=== PATIENT | female | born 1935 | race Caucasian/White ===

== ENCOUNTER 2020-06-16 20:28 | Emergency (ER) | payer MEDICARE, SELFPAY ==
--- NOTE | ~2020-06-16 | CT_ITS ---
EXAMINATION: CT brain wo con EXAM DATE: 06/16/2020 22:09 INDICATION: Fall. Head injury. TECHNIQUE: Spiral CT of the head was performed without contrast. Axial, coronal and sagittal images were reviewed. The dose-length product (DLP) for this examination was 605.33 mGy-cm. The exposure w as tailored according to patient size, and iterative reconstruction (ASIR) was used as additional dos e reduction technique. Comparison is made to prior examination from 03/14/2019. FINDINGS: There is left frontal lobe intraparenchymal hematoma measuring 2.6 cm, in a region of prior old infarction. Probable small overlying subarachnoid hemorrhage. There is left parietal scalp contu shemar and laceration. No evidence of underlying brain mass but follow-up should be obtained. There is mild to moderate microangiopathy and cerebral atrophy unchanged. Bilateral cataract surgery. No obstructive hydrocephalus or extra-axial collections. Right ostiomeatal unit obstructive pattern sinus disease unchanged. IMPRESSION: Left frontal 2.6 cm acute intraparenchymal hematoma. STAT Rad radiologist phoned, discussed this case with clinician as per documentation in their report, which was faxed and scanned into PACS with this exam. Reviewed, dictated and finalized at location A. NTORY ASSISTANT IMPRESSION: Left frontal 2.6 cm acute intraparenchymal hematoma. STAT Rad radiologist phoned, discussed this case with clinician as per document ation in their report, which was faxed and scanned into PACS with this exam.
[2020-06-16 20:41] VITALS: BP 163/96; PULSE 84; RESP 15; TEMP 36.7; O2SAT 100
--- NOTE | 2020-06-16 20:59 | ED.HEATRA ---
HPI - Head Injury General Chief complaint: Head Injury Stated complaint: head lac, tripped over walker Time Seen by Provider: 06/16/20 20:52 History of Present Illness HPI Narrative: 84 yo female presents from home after a fall. She fell backwards down 2 steps and struck the back of her head on the ground. The fall was not witnessed. she does nt believe that she lost consciousness. She does have a moderate headache and bleeding from the posterior scalp. She is on plavix. Related Data Home Medications Medication Instructions Recorded Confirmed atorvastatin 06/16/20 carvedilol 06/16/20 clopidogrel 06/16/20 06/16/20 furosemide 06/16/20 olanzapine mg 06/16/20 Allergies Allergy/AdvReac Type Severity Reaction Status Date / Time codeine Allergy Unknown Verified 03/14/19 18:58 Review of Systems Review of Systems: All systems reviewed & are unremarkable except as noted in HPI and below Constitutional: Constitutional: Denies fever(s) Eyes: Eyes: Denies change in vision Cardiovascular: Cardiovascular: Denies chest pain Respiratory: Respiratory: Denies dyspnea Gastrointestinal: Gastrointestinal: Denies abdominal pain Musculoskeletal: Musculoskeletal: Denies back pain Neurologic: Denies dizziness, Reports headache(s) and Denies weakness Exam Const: General: no acute distress and alert Orientation/consciousness: patient oriented x3 HENMT: Other: Hair matted wiht blood obscuring view of the scalp Eyes: Pupils: Equal, round and reactive pupils present Neck: Neck: normal visual inspection Resp: Effort & Inspection: normal respiratory effort Auscultation: clear to auscultation bilaterally Cardio: Rate: regular rate Rhythm: regular rhythm GI: GI Palp: Yes Soft to palpation and No Tenderness to palpation present (GI) Back/Spine/Pelvis: Other: No cervical spine tenderness Skin: General skin exam: normal color Neuro: General: patient oriented x3 and no focal motor deficits Cranial nerves: Yes CN's II-XII intact bilaterally Other: Mild aphasia/dysarthria Extrem: General: no edema Course Course Emergency Course: Attempted transfer to [facility] at the patient request. They have no beds available. [facility] has accepted the patient. On reassessment her speech has significantly declined. Give the rapid worsening in symptoms I will plan to transfer her by air EMS. Vital Signs Vital signs: Vital Signs Temperature 36.7 C 06/16/20 20:41 Pulse Rate 84 06/16/20 20:41 Respiratory Rate 15 06/16/20 20:41 Blood Pressure 163/96 H 06/16/20 20:41 Pulse Oximetry 100 06/16/20 20:41 Temperature 36.7 C 06/16/20 20:41 Pulse Rate 85 06/16/20 22:53 Respiratory Rate 18 06/16/20 22:53 Blood Pressure 151/74 H 06/16/20 22:53 Pulse Oximetry 100 06/16/20 22:53 MDM - Head Injury Differential Diagnosis Differential diagnosis: Likely concussion without loss of consciousness, closed head injury, subarachnoid hematoma and subdural hematoma Medical Records Attestation: I reviewed the patient's medical records. Lab Data Attestation: I reviewed the patient's lab results. Result diagrams: 06/16/20 22:42 06/16/20 22:42 Labs: Lab Results 06/16/20 06/16/20 06/16/20 Range/Units 22:42 22:42 22:42 WBC 6.6 (4.5-10.0) K/mm3 RBC 3.33 L (4.2-5.4) M/mm3 Hgb 10.5 L (12.0-15.0) g/dL Hct 32.3 L (37.0-47.0) % MCV 97.0 (80-100) fl MCH 31.5 (26-34) pg MCHC 32.5 (32-36) g/dl RDW 14.1 (11.5-14.5) % Plt Count 205 (150-375) k/mm3 MPV 10.5 H (7.4-10.4) fl Immature Gran % (Auto) 0.6 H (0-0.5) % Neut % (Auto) 57.2 (45.5-73.1) % Lymph % (Auto) 28.9 (18.3-44.2) % [place] % (Auto) 9.0 H (2.6-8.5) % Eos % (Auto) 3.7 (0-4.4) % Baso % (Auto) 0.6 (0.2-1.2) % Lymph # (Auto) 1.90 (0.9-3.2) K/mm3 [place] # (Auto) 0.6 (0.1-0.6) K/mm3 Eos # (Auto) 0.2 (0-0.3) K/mm3 Baso # (Auto) 0.0 (0.0-0.1) K/mm
--- NOTE | 2020-06-16 22:00 | PC.NURSE ---
Pt taken to CT scan
--- NOTE | 2020-06-16 22:27 | PC.NURSE ---
Pts speech has significantly become more slurred then when arrived. made aware.
[2020-06-16 22:50] LABS: Basophils Percent Auto 0.6 % (0.2-1.2); Eosinophils Absolute Auto 0.2 K/mm3 (0-0.3); Eosinophils Percent Auto 3.7 % (0-4.4); Hematocrit 32.3 % (37.0-47.0); Hemoglobin 10.5 g/dL (12.0-15.0); Immature Granulocyte Absolute 0.04 K/mm3 (0.00-0.031); Immature Granulocyte Percent A 0.6 % (0-0.5); Lymphocytes Percent Auto 28.9 % (18.3-44.2); Mean Corpuscular HGB Conc 32.5 g/dl (32-36); Mean Corpuscular Hemoglobin 31.5 pg (26-34); Mean Platelet Volume 10.5 fl (7.4-10.4); Monocytes Absolute Auto 0.6 K/mm3 (0.1-0.6); Neutrophils Absolute Auto 3.8 K/mm3 (1.3-6.7); Neutrophils Percent Auto 57.2 % (45.5-73.1); Platelet Count Result 205 k/mm3 (150-375); Red Blood Count 3.33 M/mm3 (4.2-5.4); Red Cell Distribution Width 14.1 % (11.5-14.5); White Blood Count 6.6 K/mm3 (4.5-10.0)
[2020-06-16 22:53] VITALS: BP 151/74; PULSE 85; RESP 18; O2SAT 100
[2020-06-16 23:00] LABS: Partial Thromboplastin Time 24.4 SECONDS (22.3-36.8); Prothrombin Time 13.7 Seconds (11.1-14.7)
[2020-06-16 23:02] LABS: Anion Gap 6 mmol/L (8-16); Blood Urea Nitrogen 34 mg/dL (7-17); Carbon Dioxide 25 mmol/L (22-30); Chloride 107 mmol/L (98-107); Estimated CRCL calculation 22 ml/min; Estimated Glomerular Filt Rate 27; Glucose 214 mg/dL (65-105); Potassium 4.7 mmol/L (3.4-5.0); Sodium 138 mmol/L (137-145)
[2020-06-16] MEDS: SODIUM CHLORIDE 0.9% IV 250 ML 30 ML IV CONT (23:05)
--- NOTE | 2020-06-16 23:05 | PC.NURSE ---
Emergency release of platelets for pt. Pt recieved these as leaving with flight crew.
--- NOTE | 2020-06-26 07:15 | PC.NURSE ---
LATE Entry: This pt received 1000 ml of IV fluids that was completed at 3062
== END 2020-06-16 23:08 | disposition short-term general hospital (02) ==
PROVIDERS: Emergency Provider Emergency Medicine
DX: S06.360A Traumatic hemorrhage of cerebrum, unspecified, without loss of consciousness, initial encounter (principal); Z79.02 Long term (current) use of antithrombotics/antiplatelets; W10.9XXA Fall (on) (from) unspecified stairs and steps, initial encounter
CPT/HCPCS: 36415; 36430; 70450; 80048; 85025; 85610; 85730; 86900; 86901; 99291; J7050; P9034

== ENCOUNTER 2022-04-16 09:10 | Inpatient (IN) | payer MEDICARE, SELFPAY ==
[2022-04-16] VITALS (36 sets, daily range): BP systolic 151–190; BP diastolic 64–99; PULSE 73–94; RESP 9–26; TEMP 35.1–36.9; O2SAT 94–100; BMI 22.7
--- NOTE | ~2022-04-16 | XR_ITS ---
EXAMINATION: XR chest 1V portable DATE: 04/17/2022 05:27 INDICATION: Unresponsive. TECHNIQUE: A single frontal view of the chest was obtained. COMPARISON: Chest single view 04/16/2022 FINDINGS: There is a small right pleural effusion. No pneumonia or pneumothorax. Cardiomegaly is note d. An electronic implant overlies left chest wall. IMPRESSION: 1. Small right pleural effusion with slight worsening. 2. Cardiomegaly. Reviewed, dictated and finalized at location A.
--- NOTE | ~2022-04-16 | CT_ITS ---
EXAMINATION: CT brain wo con DATE: 04/16/2022 10:02 INDICATION: Altered mental status TECHNIQUE: Computed tomography (CT) of the head was performed without intravenous contrast. The dose- length product was 605.33 mGy-cm. Automated exposure control and iterative reconstruction technique w ere employed. COMPARISON: CT dated 06/16/2020 FINDINGS: Generalized atrophy. There are scattered mild periventricular and subcortical white matter changes, most likely related to small vessel ischemic disease (microangiopathy). Chronic left lacunar infarction. Chronic left parietal lobe infarction with encephalomalacia. There is intracranial ather osclerosis. There is pansinusitis, most prominent in the left maxillary sinus. No acute infarction, h emorrhage, mass or mass effect. IMPRESSION: 1. No acute intracranial abnormality. 2: Chronic left lacunar and parietal lobe infarctions. 3: Chronic age-related findings. Reviewed, dictated and finalized at location B.
--- NOTE | ~2022-04-16 | XR_ITS ---
XR chest 1V portable 04/17/2022 08:27 Indication: Hypoxia Procedure: AP portable chest Comparison: 04/17/2022 Findings: Cardiomegaly. There is an intramedullary zonia in the left humerus proximally there is right perihilar and basilar airspace consolidation. Small right pleural effusion. Left lung is clear. No pn eumothorax. There are degenerative changes of the shoulders. No acute osseous abnormality. Impression: 1: Right retrocardiac and basilar airspace disease which may represent pneumonia and/or atelectasis. 2: Small right pleural effusion. Reviewed, dictated and finalized at location B. Impression: 1: Right retrocardiac and basilar airspace disease which may represent pneumoni a and/or atelectasis. 2: Small right pleural effusion.
--- NOTE | ~2022-04-16 | XR_ITS ---
EXAMINATION: XR chest 1V DATE: 04/16/2022 10:04 INDICATION: Altered mental status. TECHNIQUE: A single frontal view of the chest was obtained. COMPARISON: Chest 2 views 03/14/2019 FINDINGS: Skinfolds overlie right hemithorax. There is a small right pleural effusion. There is a dif fuse interstitial pattern in the lungs, consistent mild pulmonary edema. No pneumothorax. Cardiomegal y is noted. An electronic device overlies left chest wall. There is internal fixation of left humerus . IMPRESSION: 1. Mild pulmonary edema. 2. Small right pleural effusion. 3. Cardiomegaly. Reviewed, dictated and finalized at location A.
--- NOTE | 2022-04-16 09:18 | ED.AMS ---
HPI - Altered Mental Status General Chief Complaint: Altered Mental Status Stated Complaint: unresponsive possible uti History of Present Illness HPI narrative: 89-year-old female presenting the emergency department for evaluation of altered mental status. Patient is unresponsive to other than painful stimuli. Family states that the patient did have a brain bleed approximately 2 years ago and this was treated in outside hospital. He states over the last few days she has become increasingly irritable. They state that last night patient had increased difficulty with transitioning from her wheelchair to the bed. They report that when they went to wake of the patient this morning she was unresponsive. Related Data Home Medications Medication Instructions Recorded Confirmed atorvastatin 40 mg tablet 40 mg HS 04/16/22 04/16/22 carvedilol 6.25 mg tablet 6.25 mg PO Q12H 04/16/22 04/16/22 glimepiride 1 mg tablet 1 mg PO DAILY 04/16/22 04/16/22 mirtazapine 15 mg tablet 15 mg PO HS 04/16/22 04/16/22 quetiapine 50 mg tablet 50 mg PO HS 04/16/22 04/16/22 trazodone 50 mg tablet 50 mg PO HS PRN Sleep 04/16/22 04/16/22 Allergies Allergy/AdvReac Type Severity Reaction Status Date / Time codeine AdvReac Unknown Verified 04/16/22 15:09 Review of Systems Review of Systems: ROS unobtainable: Yes unobtainable due to mental status [facility] Family History Family History (Updated 04/16/22 @ 15:45 by Brenda Miramontes RN) Other Unknown family medical history Social History Social History Smoking status: Never smoker Alcohol intake: never Substance use: never Spiritual care concerns: No Exam Narrative: APPEARANCE: Somnolent HEAD: normocephalic, atraumatic. EYES: PERRLA/EOMI, conjunctivae clear. NOSE: Normal no drainage EARS:TMS clear with good light reflex. THROAT: Pharynx clear, no exudate. Strong gag reflex NECK: Supple. No adenopathy, no masses. RESPIRATORY: Airway patent, respirations nonlabored. Clear to auscultation bilaterally, no rales, rhonchi, wheezing. CARDIOVASCULAR: Regular rate and rhythm without murmurs rubs or gallops. ABDOMINAL: Soft, nontender, nondistended, normal bowel sounds MUSCULOSKELETAL: Moves all extremities. Strength/ROM intact, No edema, No calf tenderness. NEURO: Alert. Cranial nerves II through XII intact. Moving all extremities passively. SKIN: Warm, dry. Normal Color Course Course Emergency Course: Patient's head CT was negative for acute intracranial abnormality. Patient was treated for a urinary tract infection. Neurology was consulted due to possibility of an underlying stroke. Patient will be admitted for an MRI. Unable to get CTA due to patient's baseline creatinine status. After discussion with family they decided to make the patient a DNI DNR. Vital Signs Vital signs: Vital Signs Temperature 96.9 F L 04/16/22 09:02 Pulse Rate 90 04/16/22 09:02 Respiratory Rate 26 H 04/16/22 09:02 Blood Pressure 183/91 H 04/16/22 09:02 Pulse Oximetry 94 04/16/22 09:02 Oxygen Delivery Nasal Cannula 04/16/22 09:02 Oxygen Flow Rate 6 04/16/22 09:02 Temperature 98.3 F 04/16/22 16:15 Pulse Rate 87 04/16/22 16:15 Respiratory Rate 17 04/16/22 16:15 Blood Pressure 176/90 H 04/16/22 16:15 Pulse Oximetry 97 04/16/22 16:15 Oxygen Delivery Nasal Cannula 04/16/22 09:02 Oxygen Flow Rate 6 04/16/22 09:02 MDM - Altered Mental Status Lab Data Attestation: I reviewed the patient's lab results. Result diagrams: 04/16/22 09:19 04/16/22 15:27 Labs: Lab Results 04/16/22 04/16/22 04/16/22 Range/Units 09:19 09:19 09:19 WBC 5.4 (4.5-10.0) K/mm3 RBC 4.16 L (4.2-5.4) M/mm3 Hgb 12.8 (12.0-15.0) g/dL Hct 39.0 (37.0-47.0) % MCV 93.8 (80-100) fl MCH 30.8 (26-34) pg MCHC 32.8 (32-36) g/dl RDW 13.3 (11.5-14.5) % Plt Count 164 (150-375) k/mm3 MPV 11.8 H (7.4-10.4) fl [place]
[2022-04-16 09:32] LABS: Basophils Percent Auto 0.7 % (0.2-1.2); Eosinophils Percent Auto 0.7 % (0-4.4); Hemoglobin 12.8 g/dL (12.0-15.0); Immature Granulocyte Absolute 0.02 K/mm3 (0.00-0.031); Immature Granulocyte Percent A 0.4 % (0-0.5); Lymphocytes Absolute Auto 1.03 K/mm3 (0.9-3.2); Lymphocytes Percent Auto 19.3 % (18.3-44.2); Mean Corpuscular HGB Conc 32.8 g/dl (32-36); Mean Corpuscular Hemoglobin 30.8 pg (26-34); Mean Corpuscular Volume 93.8 fl (80-100); Mean Platelet Volume 11.8 fl (7.4-10.4); Monocytes Absolute Auto 0.2 K/mm3 (0.1-0.6); Monocytes Percent Auto 3.6 % (2.6-8.5); Neutrophils Percent Auto 75.3 % (45.5-73.1); Platelet Count Result 164 k/mm3 (150-375); Red Blood Count 4.16 M/mm3 (4.2-5.4); Red Cell Distribution Width 13.3 % (11.5-14.5); White Blood Count 5.4 K/mm3 (4.5-10.0)
[2022-04-16 09:41] LABS: Lactic Acid Reflex 1.5 mmol/L (0.7-2.0)
[2022-04-16 09:42] LABS: Add Urine Microscopic? YES; Appearance Urine Clear (Clear); Bilirubin Urine Negative (Negative); Blood Urine 2+ (Negative); Color Urine Straw (Yellow); Glucose Urine UA 2+ mg/dL (Negative); Ketones Urine Trace mg/dL (Negative); Leukocyte Esterase Ur 1+ LEU/UL (Negative); Nitrate Urine Negative (Negative); Protein Urine 2+ mg/dL (Negative); RBC Urine 21-50 /hpf (0-2); Specific Grav Ur 1.013 (1.001-1.035); Squamous Epithelial Cell Urine Rare /hpf (Few); Urobilinogen Urine Negative mg/dL (<2.0); WBC Clumps Urine Present /HPF; WBC Urine 16-20 /hpf
[2022-04-16 09:47] LABS: Alanine Aminotransferase 21 U/L (6-35); Alkaline Phosphatase 130 U/L (38-126); Anion Gap 16 mmol/L (8-16); Aspartate Amino Transferase 33 U/L (14-36); Bilirubin,Total 0.9 mg/dL (0.2-1.3); Blood Urea Nitrogen 51 mg/dL (7-17); Calcium 6.4 mg/dL (8.4-10.2); Carbon Dioxide 20 mmol/L (22-30); Chloride 109 mmol/L (98-107); Creatine Kinase 121 U/L (30-135); Estimated Glomerular Filt Rate 25; Glucose 218 mg/dL (65-110); Potassium 6.3 mmol/L (3.4-5.0); Sodium 145 mmol/L (137-145)
[2022-04-16 09:48] LABS: Alveolar/Arterial O2 Gradient 63.9 mmHg; Base Excess ABG -4.4 mEq/l (+/-2.0); Fractional Inspired Oxygen 34 %; HCO3 ABG 20.5 mEq/l (22.0-26.0); Oxygen Content ABG 17.9 %vol (16.0-22.0); Oxygen Saturation ABG 98.6 % (95.0-100.0); Oxyhemoglobin 97.2 % THb (90.0-100.0); PCO2 ABG 37.1 mmHg (35.0-45.0); PO2 ABG 135.3 mmHg (80.0-100.0); PO2 FiO2 Ratio Arterial Blood 3.98 %; Total Hemoglobin 12.9 g/dL (12.0-18.0)
[2022-04-16 09:50] LABS: Device NASAL CANNULA; Site Drawn RIGHT BRACHIAL
[2022-04-16 09:51] LABS: Liters per Minute 3.5 LPM
[2022-04-16 10:07] LABS: INR 1.2; Partial Thromboplastin Time 23.8 SECONDS (22.3-36.8); Prothrombin Time 14.4 Seconds (11.1-14.7)
[2022-04-16 10:11] LABS: SARS-CoV-2 RNA PCR Negative
[2022-04-16] MEDS: INSULIN HUMAN REGULAR (*BKC) 100 UNITS/ML IV PUSH (10:29)
[2022-04-16] MEDS: ONDANSETRON INJ 4 MG/2 ML VIAL IV PUSH (10:30)
[2022-04-16] MEDS: CALCIUM GLUCONATE 1,000 MG/10 ML VIAL 1000 MG IV PUSH (10:30)
[2022-04-16] MEDS: SODIUM BICARBONATE 8.4% 50 MEQ/50 ML SYRINGE IV PUSH (10:30)
[2022-04-16] MEDS: SODIUM CHLORIDE 0.9% IV 1,000 ML 999 ML IV CONT (10:31)
[2022-04-16 12:19] LABS: Estimated Glomerular Filt Rate 27
--- NOTE | 2022-04-16 13:21 | PCCCNOTE ---
[employer] Form filled out by [facility], in room with patient and her two daughters. Dr Ruiz also signed.
[2022-04-16 14:05] LABS: Glucose Point of Care 167 mg/dl (65-105)
--- NOTE | 2022-04-16 14:56 | ADMGEN ---
This patient, Lexi Pérez, was admitted to IMU Room 206-1 @ 1420. pt arrived to floor with no family at bedside-family was with pt in ED- unable to complete admission assessment- pt snoring respiration- O2 on 2 l/n @ 16-96% pt does not open eyes to painful stimuli- VSS- Monitor on SR 70's- PMH obtained from medical hx
--- NOTE | 2022-04-16 15:26 | PM.IMHP ---
H&P: HPI History of Present Illness Date/Time: 04/16/22 15:26 Chief Complaint: Altered mental status Narrative: 86-year-old female with a past medical history of type 2 diabetes mellitus, chronic kidney disease, essential hypertension, and prior traumatic brain injury with intercranial bleed 2019 who presented to the ER via EMS from home due to being found unresponsive. Source of information is the patient's daughters who are bedside and ER report. The family reports that the patient usually has mumbling and monitoring speech but they can not understand her. However over the last 4-5 days the patient has been more agitated and having moments of violence. They state that this can often happen when she is feeling ill or has an infection. However today when they went to get her up she was unresponsive. She had emesis noted on her clothes but they did not witness the episode of emesis and were unsure if the patient had possibly aspirated. Patient is sats in the field were 90% on room air and EMS a place the patient on a non-rebreather due to snoring respirations. The family reports that the patient has had multiple episodes of abnormal urines in the past that were necessarily consistent with UTI. They deny the patient having recent fever. 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 The patient reportedly has had a good appetite and drinks plenty of fluids. Although over the last couple of days she may have had some decreased oral intake. She had had a history of dysphagia after her traumatic brain injury in May 2020 and had a G-tube temporarily but this was removed only few months after her initial head injury. Patient does have a history of chronic wounds to bilateral feet. Patient's daughter denies any drainage erythema or evidence of infection of these areas. She is receiving daily dressing changes. Review of another medical record number that the patient has demonstrated the patient had creatinine of 1.8 in May 2020 when she had her intraparenchymal hemorrhage (2.6 cm left frontal parenchymal hemorrhage). Review of Systems Review of Systems: Unobtainable due to the patient's mentation. [facility] Past Medical History Medical History (Updated 04/16/22 @ 18:51 by Larisa Mi DO) Chronic kidney disease, stage 4 (severe) With baseline creatinine of 1.8 in 2019. Combined systolic and diastolic congestive heart failure Echocardiogram 2013 EF 45% grade 1 diastolic dysfunction Coronary artery disease CVA (cerebral vascular accident) (04/2014) Essential hypertension Type 2 diabetes mellitus Surgical History Surgical History (Updated 04/16/22 @ 18:33 by Larisa Mi DO) History of heart artery stent X5 greater than 20 years ago Implantable loop recorder present Status post cataract extraction of both eyes with insertion of intraocular lens Status post open reduction with internal fixation of fracture Left humerus fracture Family History Family History (Updated 04/16/22 @ 18:35 by Larisa Mi DO) Father , Age 60 COPD (chronic obstructive pulmonary disease) Alcoholism Mother , Age 70 Diabetes mellitus Social History Social History (Updated 04/16/22 @ 18:38 by Larisa Mi DO) Social History: She has been and also . She has 2 daughters and currently lives with her daughter Leilani. She previously lived in assisted living until December 21, 2021. She is a lifelong nonsmoker. She only occasionally drink alcohol and has not done so in many years. Code status: DNR/DNI Healthcare power of transformer inspector: Leilani Castle (daughter) Smoking status: Never smoker Alcohol intake: former Substance use: never Spiritual care concerns: No Meds Home Medications and Allergies Home Medications Medication Instructions Recorded Confirmed Type atorvastatin 40 mg tablet 40 mg DA
[2022-04-16] MEDS: SODIUM CHLORIDE 0.9% IV 1,000 ML 75 ML IV CONT (16:05)
[2022-04-16 16:10] LABS: Anion Gap 12 mmol/L (8-16); Blood Urea Nitrogen 49 mg/dL (7-17); Carbon Dioxide 21 mmol/L (22-30); Chloride 110 mmol/L (98-107); Estimated CRCL calculation 19 ml/min; Estimated Glomerular Filt Rate 25; Glucose 181 mg/dL (65-110); Potassium 4.5 mmol/L (3.4-5.0); Sodium 143 mmol/L (137-145)
[2022-04-16 18:42] LABS: Glucose Point of Care 183 mg/dl (65-105)
[2022-04-16] MEDS: ASPIRIN 300 MG SUPPOSITORY RECTAL (21:24)
[2022-04-17] VITALS (27 sets, daily range): BP systolic 100–152; BP diastolic 44–76; PULSE 59–106; RESP 20–27; TEMP 35–37; O2SAT 83–100; BMI 23.6
--- NOTE | 2022-04-17 | ECHO_ITS ---
Patient Info Name: Lexi Pérez Age: 86 years : 1935 Gender: Female Ht: 62 in Wt: 168 lbs BSA: 1.85 m2 HR: 84 bpm BP: 118 / 57 mmHg Heart Rhythm: Sinus Rhythm Technical Quality: Fair Exam Date: 04/17/2022 11:04 AM Exam Location: [facility] Patient Status: Inpatient Admit Date: 04/16/2022 Staff Ordering Physician: Yolis Cline DO Field Crew Chief: Lynda Cramer RDCS Attending Provider: Camila William MD Referring Physician: Marlyn KENDALL; Exam Type: CA echo doppler color flow Study Info Indications - ams Complete two-dimensional, color flow and Doppler transthoracic echocardiogram is performed. Summary 1. Complete two-dimensional, color flow and Doppler transthoracic echocardiogram is performed. 2. Left ventricular chamber dimension is normal. 3. Left ventricular systolic function is moderately reduced, estimated at 30-35% with akinesis of the basal inferolateral mid to basal anterolateral simmons. 4. There is mildly increased left ventricular wall thickness. Suggestion of speckled myocardium. Consider infiltrative process if clinically indicated. 5. The left ventricular diastolic function is grade I diastolic dysfunction. 6. There is mild aortic valve stenosis with a peak velocity of 126 cm/s, mean gradient of 3 mmHg, and aortic valve area of 1.5 cm2. 7. There is mild tricuspid valve regurgitation. 8. Severe pulmonary hypertension, estimated pulmonary arterial systolic pressure is 79 mmHg. 9. Dilated inferior vena cava with <50% collapse upon inspiration consistent with elevated right atrial pressure, 10 mmHg. Left Ventricle Left ventricular chamber dimension is normal. Left ventricular systolic function is moderately reduced, estimated at 30-35% with akinesis of the basal inferolateral mid to basal anterolateral simmons. There is mildly increased left ventricular wall thickness. Suggestion of speckled myocardium. Consider infiltrative process if clinically indicated. The left ventricular diastolic function is grade I diastolic dysfunction. E/e' 20.4 is moderately elevated. Right Ventricle Right ventricular chamber dimension is not well visualized. Left Atria Left atrial chamber dimension is normal. Right Atria Right atrial chamber dimension is normal. Aortic Valve The aortic valve is not well visualized. There is mild aortic valve stenosis with a peak velocity of 126 cm/s, mean gradient of 3 mmHg, and aortic valve area of 1.5 cm2. There is no aortic valve regurgitation. There is mild aortic valve calcification. Pulmonic Valve The pulmonic valve is not well visualized. Mitral Valve The mitral valve has thickened leaflets. There is trace mitral valve regurgitation. The mitral valve annulus is moderately calcified. Tricuspid Valve The tricuspid valve leaflets are normal. There is mild tricuspid valve regurgitation. Severe pulmonary hypertension, estimated pulmonary arterial systolic pressure is 79 mmHg. Pericardium/Pleural The pericardium appears normal. There is no pericardial effusion. Inferior Vena Cava Dilated inferior vena cava with <50% collapse upon inspiration consistent with elevated right atrial pressure, 10 mmHg. Aorta The aortic root size at the sinus of Valsalva is normal. There is mild-moderate aortic atherosclerosis. Left Ventricular Outflow Tract Name Value Normal
[2022-04-17 00:02] LABS: Glucose Point of Care 185 mg/dl (65-105)
[2022-04-17 05:13] LABS: Hemoglobin 11.2 g/dL (12.0-15.0); Mean Corpuscular Hemoglobin 30.4 pg (26-34); Mean Corpuscular Volume 95.1 fl (80-100); Mean Platelet Volume 11.5 fl (7.4-10.4); Platelet Count Result 152 k/mm3 (150-375); Red Blood Count 3.68 M/mm3 (4.2-5.4); Red Cell Distribution Width 13.5 % (11.5-14.5); White Blood Count 11.2 K/mm3 (4.5-10.0)
[2022-04-17] MEDS: FUROSEMIDE INJ 40 MG/4 ML VIAL IV PUSH ×2 (05:23→09:58)
[2022-04-17 05:30] LABS: Anion Gap 10 mmol/L (8-16); Blood Urea Nitrogen 54 mg/dL (7-17); Calcium 8.3 mg/dL (8.4-10.2); Carbon Dioxide 21 mmol/L (22-30); Chloride 113 mmol/L (98-107); Estimated CRCL calculation 18 ml/min; Estimated Glomerular Filt Rate 24; Glucose 172 mg/dL (65-110); Potassium 4.7 mmol/L (3.4-5.0); Sodium 144 mmol/L (137-145)
--- NOTE | 2022-04-17 06:45 | PC.NURSE ---
i have reviewed the charting Jazmine Maya
--- NOTE | 2022-04-17 08:24 | PM.IMPN ---
Progress Note: A&P Assessment and Plan (1) Altered mental status: Code(s): R41.82 - Altered mental status, unspecified Status: Acute Assessment and Plan: Differential includes encephalopathy due to possible UTI, encephalopathy due to worsening renal function with elevated BUN or acute CVA. They initial plan was for the patient to be admitted for IV fluids correction of her hyperkalemia and MRI without contrast. Unfortunately the patient has an implanted loop recorder that was implanted at least 10 years ago. The family does not know the details regarding the loop recorder. The patient had had a MRI at [facility] in October of this year. Neurology has been consulted for further evaluation and recommendations. Patient is hypertensive but will allow for some permissive hypertension given possibility of possible acute CVA. Will provide rectal aspirin. 04/17: patient developed hypoxia + leukocytosis overnight, looking at H&P, patient may have aspirated, will start patient on vanc + imipenem, stop rocephin. Chest x-ray showed worsening edema with vascular congestion, no pneumonia, will give patient a dose of Lasix 40 mg IV now, ABG shows acidosis with hypercapnia, will place patient on BiPAP and reassess in a few hours. (2) Bacteriuria with pyuria: Code(s): R82.71 - Bacteriuria; R82.81 - Pyuria Status: Acute Assessment and Plan: Patient has bacteria pyuria. She does not have a fever or evidence of leukocytosis. She did receive 1 dose of Rocephin in the ER. Will continue Rocephin while awaiting urine cultures. 04/17: rocpehin d/c d/t possible asp pna, start imipenem (3) Acute hyperkalemia: Code(s): E87.5 - Hyperkalemia Status: Acute Assessment and Plan: Patient received calcium, bicarb and insulin in the ER. Her repeat potassium level as improved. Patient is not on oral supplements at home. This is likely due to decreased excretion from her chronic kidney disease with likely complicating dehydration given increased BUN from baseline. Will continue normal saline and repeat BMP in a.m. 04/17: potassium resolved, stable at 4.7, cont to monitor, goal >4 to prevent arrhythmias, calcium 8.3 today (4) Chronic kidney disease, stage 4 (severe): Code(s): N18.4 - Chronic kidney disease, stage 4 (severe) Status: Acute Assessment and Plan: stable, baseline creatinine likely 1.8-2 (5) Diabetes mellitus with hyperglycemia, without long-term current use of insulin: Qualifiers: Diabetes mellitus type: type 2 Qualified Code(s): E11.65 - Type 2 diabetes mellitus with hyperglycemia Code(s): E11.65 - Type 2 diabetes mellitus with hyperglycemia Status: Acute Assessment and Plan: Will hold the patient's oral hypoglycemic agents. Will place patient on Accu-Cheks q.6 hours while NPO and had low-dose sliding scale insulin q.6 hours. Hypoglycemia protocol is also ordered. 04/17: a1c ordered and pending, goal glucose < 180 d/t possible CVA, will start lantus 5 units this morning x 1 dose and reassess tomorrow (6) Essential hypertension: Code(s): I10 - Essential (primary) hypertension Status: Acute Assessment and Plan: Will continue home Coreg but will allow for some permissive hypertension in case patient has had a acute CVA. Plan DVT prophylaxis with SCDs GI prophylaxis not indicated Code status DNR Subjective Date/time seen: 04/17/22 08:24 Interval history: overnight patient became extremely hypoxic and ended up on BiPAP. ABG showed acidosis likely secondary to hypercapnia. Patient remains unresponsive. Case discussed with family extensively at bedside. All questions answered. Review of Systems Review of Systems: ROS unobtainable: Yes unobtainable due to medical condition and unobtainable due to mental status Exam Narrative: General: Unresponsive HEENT: Atraumatic, normocephalic,
--- NOTE | 2022-04-17 08:43 | WPDNEURCNPN ---
Assessment and Plan Assessment and plan (1) Altered mental status: Code(s): R41.82 - Altered mental status, unspecified Status: Acute (2) Acute UTI: Code(s): N39.0 - Urinary tract infection, site not specified Status: Acute (3) Chronic kidney disease, stage 4 (severe): Code(s): N18.4 - Chronic kidney disease, stage 4 (severe) Status: Acute (4) Diabetes mellitus with hyperglycemia, without long-term current use of insulin: Qualifiers: Diabetes mellitus type: type 2 Qualified Code(s): E11.65 - Type 2 diabetes mellitus with hyperglycemia Code(s): E11.65 - Type 2 diabetes mellitus with hyperglycemia Status: Acute Plan Ms. Pérez is an 86 year old female with a history of prior hemorrhagic stroke, DM, CKD, HTN who presented after being found unresponsive. UA concerning for UTI. Also considering aspiration given history of emesis and recent respiratory deterioration. Etiology is likely underlying infection vs uremia vs vascular event. Suspicion for seizure is low, although patient is at risk considering history of prior stroke. - If no improvement in mental status with treatment of underlying infection, recommend MRI brain - Obtain routine EEG Consult date: 04/17/22 Time Seen: 08:43 Reason for consult: Altered mental status HPI: Lexi Pérez is a 86 year old female with a history of diabetes, CKD, HTN, ICH in 2019 presenting after being found unresponsive. Patient was brought in yesterday after daughters found her unresponsive at home. They reports that over the past week she has been more agitated, which happens at times due to underlying illness or infection. When daughters found her yesterday she had emesis on her clothes. On arrival to [place] ED she was lethargic. Her UA was concerning for UTI. Labs were significant for potassium of 6.3, BUN [address] head showed chronic infarct in left lacunar and parietal lobe. Patient was started on Rocephin and was admitted for treatment. This morning had decline in respiratory status, so was placed on BiPAP. Review of Systems Review of Systems: ROS unobtainable: Yes unobtainable due to mental status PMFSH Past Medical History Medical History Chronic kidney disease, stage 4 (severe) With baseline creatinine of 1.8 in 2019. Combined systolic and diastolic congestive heart failure Echocardiogram 2013 EF 45% grade 1 diastolic dysfunction Coronary artery disease CVA (cerebral vascular accident) (04/2014) Essential hypertension Type 2 diabetes mellitus Surgical History Surgical History History of heart artery stent X5 greater than 20 years ago Implantable loop recorder present Status post cataract extraction of both eyes with insertion of intraocular lens Status post open reduction with internal fixation of fracture Left humerus fracture Family History Family History Father , Age 60 COPD (chronic obstructive pulmonary disease) Alcoholism Mother , Age 70 Diabetes mellitus Social History Social History Social History: She has been and also . She has 2 daughters and currently lives with her daughter Leilani. She previously lived in assisted living until December 21, 2021. She is a lifelong nonsmoker. She only occasionally drink alcohol and has not done so in many years. Code status: DNR/DNI Healthcare power of commercial attorney: Leilani Castle (daughter) Smoking status: Never smoker Alcohol intake: former Substance use: never Spiritual care concerns: No Meds Home Medications and Allergies Home Medications Medication Instructions Recorded Confirmed Type atorvastatin 40 mg tablet 40 mg HS 04/16/22 04/16/22 History carvedilol 6.25 mg tablet 6.25 mg
[2022-04-17 09:14] LABS: Alveolar/Arterial O2 Gradient 514.5 mmHg; Base Excess ABG -3.3 mEq/l (+/-2.0); Fractional Inspired Oxygen 100 %; HCO3 ABG 23.5 mEq/l (22.0-26.0); Oxygen Saturation ABG 98.7 % (95.0-100.0); Oxyhemoglobin 97.4 % THb (90.0-100.0); PCO2 ABG 49.6 mmHg (35.0-45.0); PO2 ABG 148.9 mmHg (80.0-100.0); PO2 FiO2 Ratio Arterial Blood 1.49 %; Total Hemoglobin 12.2 g/dL (12.0-18.0)
[2022-04-17 09:15] LABS: Device NON-REBREATHER MASK; Site Drawn RIGHT BRACHIAL; pH ABG 7.294 (7.350-7.450)
[2022-04-17 09:32] LABS: Alanine Aminotransferase 19 U/L (6-35); Albumin Level 3.1 g/dL (3.5-5.1); Alkaline Phosphatase 95 U/L (38-126); Aspartate Amino Transferase 32 U/L (14-36); Bilirubin,Total 0.4 mg/dL (0.2-1.3)
[2022-04-17] MEDS: INSULIN GLARGINE (*BKC) 100 UNITS/ML SUB-Q (10:00)
[2022-04-17 10:03] LABS: Lactic Acid Reflex 1.1 mmol/L (0.7-2.0)
[2022-04-17] MEDS: SILVERGEL (ELTA) 45 ML 1 APPLIC TOPICAL (10:41)
[2022-04-17 11:59] LABS: Alveolar/Arterial O2 Gradient 248.5 mmHg; Base Excess ABG -2.7 mEq/l (+/-2.0); Fractional Inspired Oxygen 80 %; HCO3 ABG 24.3 mEq/l (22.0-26.0); Oxygen Content ABG 17.2 %vol (16.0-22.0); Oxygen Saturation ABG 99.5 % (95.0-100.0); PCO2 ABG 51.4 mmHg (35.0-45.0); PO2 ABG 267.9 mmHg (80.0-100.0); PO2 FiO2 Ratio Arterial Blood 3.35 %
[2022-04-17 12:01] LABS: Device BIPAP; Site Drawn RIGHT BRACHIAL; pH ABG 7.292 (7.350-7.450)
[2022-04-17 12:02] LABS: Expiratory Pressure 8 cmH2O; Inspiratory Pressure 12 cmH2O
[2022-04-17 13:11] LABS: Glucose Point of Care 188 mg/dl (65-105)
[2022-04-17 18:31] LABS: Glucose Point of Care 184 mg/dl (65-105)
[2022-04-18] VITALS (27 sets, daily range): BP systolic 95–119; BP diastolic 41–54; PULSE 60–89; RESP 20–31; TEMP 36.2–37.4; O2SAT 92–100
[2022-04-18 00:08] LABS: Glucose Point of Care 149 mg/dl (65-105)
[2022-04-18 04:48] LABS: Basophils Percent Auto 0.5 % (0.2-1.2); Eosinophils Absolute Auto 0.1 K/mm3 (0-0.3); Eosinophils Percent Auto 1.6 % (0-4.4); Hematocrit 36.5 % (37.0-47.0); Hemoglobin 11.3 g/dL (12.0-15.0); Immature Granulocyte Absolute 0.03 K/mm3 (0.00-0.031); Immature Granulocyte Percent A 0.4 % (0-0.5); Lymphocytes Absolute Auto 1.74 K/mm3 (0.9-3.2); Lymphocytes Percent Auto 20.4 % (18.3-44.2); Mean Corpuscular Hemoglobin 30.3 pg (26-34); Mean Corpuscular Volume 97.9 fl (80-100); Mean Platelet Volume 11.8 fl (7.4-10.4); Monocytes Absolute Auto 0.8 K/mm3 (0.1-0.6); Monocytes Percent Auto 8.8 % (2.6-8.5); Neutrophils Absolute Auto 5.8 K/mm3 (1.3-6.7); Neutrophils Percent Auto 68.3 % (45.5-73.1); Platelet Count Result 146 k/mm3 (150-375); Red Blood Count 3.73 M/mm3 (4.2-5.4); Red Cell Distribution Width 13.9 % (11.5-14.5); White Blood Count 8.5 K/mm3 (4.5-10.0)
[2022-04-18 05:10] LABS: Alanine Aminotransferase 19 U/L (6-35); Albumin Level 3.1 g/dL (3.5-5.1); Alkaline Phosphatase 87 U/L (38-126); Anion Gap 10 mmol/L (8-16); Aspartate Amino Transferase 36 U/L (14-36); Bilirubin,Total 0.4 mg/dL (0.2-1.3); Blood Urea Nitrogen 66 mg/dL (7-17); Carbon Dioxide 23 mmol/L (22-30); Chloride 114 mmol/L (98-107); Estimated CRCL calculation 12 ml/min; Estimated Glomerular Filt Rate 14; Glucose 143 mg/dL (65-110); Potassium 4.5 mmol/L (3.4-5.0); Sodium 147 mmol/L (137-145)
[2022-04-18] MEDS: SILVERGEL (ELTA) 45 ML 1 APPLIC TOPICAL (11:07)
[2022-04-18 12:08] LABS: Glucose Point of Care 146 mg/dl (65-105)
--- NOTE | 2022-04-18 12:12 | P.PNIM_ITS ---
Progress Note: A&P Assessment and Plan (1) Altered mental status: Code(s): R41.82 - Altered mental status, unspecified Status: Acute Assessment and Plan: Differential includes encephalopathy due to possible UTI, encephalopathy due to worsening renal function with elevated BUN or acute CVA. They initial plan was for the patient to be admitted for IV fluids correction of her hyperkalemia and MRI without contrast. Unfortunately the patient has an implanted loop recorder that was implanted at least 10 years ago. The family does not know the details regarding the loop recorder. The patient had had a MRI at [facility] in October of this year. Neurology has been consulted for further evaluation and recommendations. Patient is hypertensive but will allow for some permissive hypertension given possibility of possible acute CVA. Will provide rectal aspirin. 04/17: patient developed hypoxia + leukocytosis overnight, looking at H&P, patient may have aspirated, will start patient on vanc + imipenem, stop rocephin. Chest x-ray showed worsening edema with vascular congestion, no pneumonia, will give patient a dose of Lasix 40 mg IV now, ABG shows acidosis with hypercapnia, will place patient on BiPAP and reassess in a few hours. 04/18: patient remains on BiPAP, unable to be weaned, will consult care coordination for hospice consultation, suspect CVA as etiology (2) Bacteriuria with pyuria: Code(s): R82.71 - Bacteriuria; R82.81 - Pyuria Status: Acute Assessment and Plan: Patient has bacteria pyuria. She does not have a fever or evidence of leukocytosis. She did receive 1 dose of Rocephin in the ER. Will continue Rocephin while awaiting urine cultures. 04/17: rocephin d/c d/t possible asp pna, start imipenem 04/18: Day 2 of imipenem, blood cultures pending, white count decreasing down to 8.5 from 11 yesterday (3) Acute hyperkalemia: Code(s): E87.5 - Hyperkalemia Status: Acute Assessment and Plan: Patient received calcium, bicarb and insulin in the ER. Her repeat potassium level improved. Patient is not on oral supplements at home. This is likely due to decreased excretion from her chronic kidney disease with likely complicating dehydration given increased BUN from baseline. Will continue normal saline and repeat BMP in a.m. 04/17: potassium resolved, stable at 4.7, cont to monitor, goal >4 to prevent arrhythmias, calcium 8.3 today 04/18: Potassium 4.5 today, continue to monitor (4) Chronic kidney disease, stage 4 (severe): Code(s): N18.4 - Chronic kidney disease, stage 4 (severe) Status: Acute Assessment and Plan: stable, baseline creatinine likely 1.8-2 04/18: Creatinine worsening to 3.1 today, up from 2 yesterday, BUN increased from 54 to 66 (5) Diabetes mellitus with hyperglycemia, without long-term current use of insulin: Qualifiers: Diabetes mellitus type: type 2 Qualified Code(s): E11.65 - Type 2 diabetes mellitus with hyperglycemia Code(s): E11.65 - Type 2 diabetes mellitus with hyperglycemia Status: Acute Assessment and Plan: Will hold the patient's oral hypoglycemic agents. Will place patient on Accu- Cheks q.6 hours while NPO and had low-dose sliding scale insulin q.6 hours. Hypoglycemia protocol is also ordered. 04/17: a1c ordered and pending, goal glucose < 180 d/t possible CVA, will start lantus 5 units this morning x 1 dose and reassess tomorrow 04/18: Continue Lantus 5 units, glucose consistently under 180 now (6) Essential hypertension: Code(s): I1
--- NOTE | 2022-04-18 14:30 | PCNEURO ---
EEG on hold per Dr Cuevas due to patient condition.
[2022-04-19] VITALS (12 sets, daily range): BP systolic 113–132; BP diastolic 55–62; PULSE 59–105; RESP 22–35; TEMP 36.5–36.8; O2SAT 95–100
[2022-04-19 01:01] LABS: Glucose Point of Care 173 mg/dl (65-105)
[2022-04-19 05:04] LABS: Basophils Absolute Auto 0.1 K/mm3 (0.0-0.1); Basophils Percent Auto 0.5 % (0.2-1.2); Eosinophils Absolute Auto 0.2 K/mm3 (0-0.3); Eosinophils Percent Auto 1.6 % (0-4.4); Hematocrit 41.2 % (37.0-47.0); Hemoglobin 12.7 g/dL (12.0-15.0); Immature Granulocyte Absolute 0.04 K/mm3 (0.00-0.031); Immature Granulocyte Percent A 0.4 % (0-0.5); Lymphocytes Absolute Auto 1.92 K/mm3 (0.9-3.2); Mean Corpuscular HGB Conc 30.8 g/dl (32-36); Mean Corpuscular Hemoglobin 30.3 pg (26-34); Mean Corpuscular Volume 98.3 fl (80-100); Mean Platelet Volume 12.8 fl (7.4-10.4); Monocytes Absolute Auto 0.7 K/mm3 (0.1-0.6); Monocytes Percent Auto 6.3 % (2.6-8.5); Neutrophils Absolute Auto 8.4 K/mm3 (1.3-6.7); Neutrophils Percent Auto 74.2 % (45.5-73.1); Platelet Count Result 138 k/mm3 (150-375); Red Blood Count 4.19 M/mm3 (4.2-5.4); White Blood Count 11.3 K/mm3 (4.5-10.0)
[2022-04-19 05:11] LABS: Alanine Aminotransferase 19 U/L (6-35); Albumin Level 3.2 g/dL (3.5-5.1); Alkaline Phosphatase 98 U/L (38-126); Anion Gap 20 mmol/L (8-16); Aspartate Amino Transferase 52 U/L (14-36); Bilirubin,Total 0.6 mg/dL (0.2-1.3); Blood Urea Nitrogen 72 mg/dL (7-17); Calcium 8.6 mg/dL (8.4-10.2); Carbon Dioxide 16 mmol/L (22-30); Chloride 113 mmol/L (98-107); Estimated CRCL calculation 8 ml/min; Estimated Glomerular Filt Rate 9; Glucose 189 mg/dL (65-110); Potassium 4.6 mmol/L (3.4-5.0); Sodium 149 mmol/L (137-145)
[2022-04-19] MEDS: SILVERGEL (ELTA) 45 ML 1 APPLIC TOPICAL (08:00)
--- NOTE | 2022-04-19 08:01 | PM.IMPN ---
Progress Note: A&P Assessment and Plan (1) Altered mental status: Code(s): R41.82 - Altered mental status, unspecified Status: Acute Assessment and Plan: Differential includes encephalopathy due to possible UTI, encephalopathy due to worsening renal function with elevated BUN or acute CVA. They initial plan was for the patient to be admitted for IV fluids correction of her hyperkalemia and MRI without contrast. Unfortunately the patient has an implanted loop recorder that was implanted at least 10 years ago. The family does not know the details regarding the loop recorder. The patient had had a MRI at [facility] in October of this year. Neurology has been consulted for further evaluation and recommendations. Patient is hypertensive but will allow for some permissive hypertension given possibility of possible acute CVA. Will provide rectal aspirin. 04/17: patient developed hypoxia + leukocytosis overnight, looking at H&P, patient may have aspirated, will start patient on vanc + imipenem, stop rocephin. Chest x-ray showed worsening edema with vascular congestion, no pneumonia, will give patient a dose of Lasix 40 mg IV now, ABG shows acidosis with hypercapnia, will place patient on BiPAP and reassess in a few hours. 04/18: patient remains on BiPAP, unable to be weaned, will consult care coordination for hospice consultation, suspect CVA as etiology (2) Bacteriuria with pyuria: Code(s): R82.71 - Bacteriuria; R82.81 - Pyuria Status: Acute Assessment and Plan: Patient has bacteria pyuria. She does not have a fever or evidence of leukocytosis. She did receive 1 dose of Rocephin in the ER. Will continue Rocephin while awaiting urine cultures. 04/17: rocephin d/c d/t possible asp pna, start imipenem 04/18: Day 2 of imipenem, blood cultures pending, white count decreasing down to 8.5 from 11 yesterday (3) Acute hyperkalemia: Code(s): E87.5 - Hyperkalemia Status: Acute Assessment and Plan: Patient received calcium, bicarb and insulin in the ER. Her repeat potassium level improved. Patient is not on oral supplements at home. This is likely due to decreased excretion from her chronic kidney disease with likely complicating dehydration given increased BUN from baseline. Will continue normal saline and repeat BMP in a.m. 04/17: potassium resolved, stable at 4.7, cont to monitor, goal >4 to prevent arrhythmias, calcium 8.3 today 04/18: Potassium 4.5 today, continue to monitor (4) Chronic kidney disease, stage 4 (severe): Code(s): N18.4 - Chronic kidney disease, stage 4 (severe) Status: Acute Assessment and Plan: stable, baseline creatinine likely 1.8-2 04/18: Creatinine worsening to 3.1 today, up from 2 yesterday, BUN increased from 54 to 66 (5) Diabetes mellitus with hyperglycemia, without long-term current use of insulin: Qualifiers: Diabetes mellitus type: type 2 Qualified Code(s): E11.65 - Type 2 diabetes mellitus with hyperglycemia Code(s): E11.65 - Type 2 diabetes mellitus with hyperglycemia Status: Acute Assessment and Plan: Will hold the patient's oral hypoglycemic agents. Will place patient on Accu-Cheks q.6 hours while NPO and had low-dose sliding scale insulin q.6 hours. Hypoglycemia protocol is also ordered. 04/17: a1c ordered and pending, goal glucose < 180 d/t possible CVA, will start lantus 5 units this morning x 1 dose and reassess tomorrow 04/18: Continue Lantus 5 units, glucose consistently under 180 now (6) Essential hypertension: Code(s): I10 - Essential (primary) hypertension Status: Acute Assessment and Plan: Will continue home Coreg but will allow for some permissive hypertension in case patient has had a acute CVA. Plan DVT prophylaxis with SCDs GI prophylaxis not indicated Code status DNR Subjective Date/time seen: 04/19/22 08:01 Interval history:
--- NOTE | 2022-04-19 12:02 | PCDIET ---
pt is moving to hospice care this afternoon. comfort measures. no nutrition recommendations.
[2022-04-19 13:34] LABS: Glucose Point of Care 177 mg/dl (65-105)
--- NOTE | 2022-04-19 13:50 | P.DS_ITS ---
DS: Admitting Diagnosis Discharge Date April 19, 2022 Admitting Diagnosis Unresponsive episode DS: Discharge Diagnosis Discharge Diagnosis (1) Altered mental status: Code(s): R41.82 - Altered mental status, unspecified Status: Acute Assessment and Plan: Differential includes encephalopathy due to possible UTI, encephalopathy due to worsening renal function with elevated BUN or acute CVA. They initial plan was for the patient to be admitted for IV fluids correction of her hyperkalemia and MRI without contrast. Unfortunately the patient has an implanted loop recorder that was implanted at least 10 years ago. The family does not know the details regarding the loop recorder. The patient had had a MRI at [facility] in October of this year. Neurology has been consulted for further evaluation and recommendations. Patient is hypertensive but will allow for some permissive hypertension given possibility of possible acute CVA. Will provide rectal aspirin. 04/17: patient developed hypoxia + leukocytosis overnight, looking at H&P, patient may have aspirated, will start patient on vanc + imipenem, stop rocephin. Chest x-ray showed worsening edema with vascular congestion, no pneumonia, will give patient a dose of Lasix 40 mg IV now, ABG shows acidosis with hypercapnia, will place patient on BiPAP and reassess in a few hours. 04/18: patient remains on BiPAP, unable to be weaned, will consult care coordination for hospice consultation, suspect CVA as etiology (2) Bacteriuria with pyuria: Code(s): R82.71 - Bacteriuria; R82.81 - Pyuria Status: Acute Assessment and Plan: Patient has bacteria pyuria. She does not have a fever or evidence of leukocytosis. She did receive 1 dose of Rocephin in the ER. Will continue Rocephin while awaiting urine cultures. 04/17: rocephin d/c d/t possible asp pna, start imipenem 04/18: Day 2 of imipenem, blood cultures pending, white count decreasing down to 8.5 from 11 yesterday (3) Acute hyperkalemia: Code(s): E87.5 - Hyperkalemia Status: Acute Assessment and Plan: Patient received calcium, bicarb and insulin in the ER. Her repeat potassium level improved. Patient is not on oral supplements at home. This is likely due to decreased excretion from her chronic kidney disease with likely complicating dehydration given increased BUN from baseline. Will continue normal saline and repeat BMP in a.m. 04/17: potassium resolved, stable at 4.7, cont to monitor, goal >4 to prevent arrhythmias, calcium 8.3 today 04/18: Potassium 4.5 today, continue to monitor (4) Chronic kidney disease, stage 4 (severe): Code(s): N18.4 - Chronic kidney disease, stage 4 (severe) Status: Acute Assessment and Plan: stable, baseline creatinine likely 1.8-2 04/18: Creatinine worsening to 3.1 today, up from 2 yesterday, BUN increased from 54 to 66 (5) Diabetes mellitus with hyperglycemia, without long-term current use of insulin: Qualifiers: Diabetes mellitus type: type 2 Qualified Code(s): E11.65 - Type 2 diabetes mellitus with hyperglycemia Code(s): E11.65 - Type 2 diabetes mellitus with hyperglycemia Status: Acute Assessment and Plan: Will hold the patient's oral hypoglycemic agents. Will place patient on Accu- Cheks q.6 hours while NPO and had low-dose sliding scale insulin q.6 hours. Hypoglycemia protocol is also ordered. 04/17: a1c ordered and pending, goal glucose < 180 d/t possible CVA, will start lantus 5 units this morning x 1 dose and reassess tomorrow 10
[2022-04-19 13:54] LABS: Glucose Point of Care 204 mg/dl (65-105)
== END 2022-04-19 13:54 | disposition hospice, inpatient (51) | DRG 65 ==
LOC: ANHED 13:07 → ANHIMU 14:21
PROVIDERS: Internal Medicine; Admitting Provider Family Medicine; Emergency Provider Emergency Medicine; Visit Provider Student in an Organized Health Care Education/Training Program
DX: I63.9 Cerebral infarction, unspecified (principal); I13.0 Hypertensive heart and chronic kidney disease with heart failure and stage 1 through stage 4 chronic kidney disease, or unspecified chronic kidney disease; I50.42 Chronic combined systolic (congestive) and diastolic (congestive) heart failure; N18.4 Chronic kidney disease, stage 4 (severe); I25.10 Atherosclerotic heart disease of native coronary artery without angina pectoris; E11.22 Type 2 diabetes mellitus with diabetic chronic kidney disease; E11.65 Type 2 diabetes mellitus with hyperglycemia; R82.71 Bacteriuria; R82.81 Pyuria; E87.5 Hyperkalemia; R09.02 Hypoxemia; Z20.822 Contact with and (suspected) exposure to COVID-19; Z66 Do not resuscitate; Z96.1 Presence of intraocular lens; Z79.84 Long term (current) use of oral hypoglycemic drugs; Z86.73 Personal history of transient ischemic attack (TIA), and cerebral infarction without residual deficits; Z87.820 Personal history of traumatic brain injury; Z95.5 Presence of coronary angioplasty implant and graft; Z95.818 Presence of other cardiac implants and grafts; Z98.42 Cataract extraction status, left eye; Z98.41 Cataract extraction status, right eye
CPT/HCPCS: 36415; 36600; 70450; 71045; 80048; 80053; 80076; 81001; 82550; 82805; 82948; 83036; 83605; 85025; 85027; 85610; 85730; 87040; 87086; 87088; 93306; 94002; 94003; 96361; 96365; 96375; 99285; A9270; J0610; J0696; J0743; J1815; J1940; J2405; J3370; J7030; U0003; U0005

== ENCOUNTER 2022-04-19 13:57 | HOS | payer OTHER, MEDICARE, SELFPAY ==
[2022-04-19 14:25] VITALS: BMI 27.6
[2022-04-19] MEDS: HYDROmorphone HCL INJ (*CRX) 1 MG/ML SYR 0.5 MG IV PUSH (14:55)
[2022-04-19] MEDS: diazePAM INJ (*CRX) 10 MG/2 ML SYRINGE 5 MG IV PUSH (14:55)
[2022-04-19] MEDS: HYDROmorphone HCL/PF (*CRX) 50 MG in SODIUM CHLORIDE 0.9% IV 95 ML IV CONT (15:18)
--- NOTE | 2022-04-19 16:16 | PM.IMHP ---
H&P: HPI History of Present Illness Date/Time: 04/19/22 16:16 Meds Home Medications and Allergies Home Medications Medication Instructions Recorded Confirmed Type atorvastatin 80 mg tablet 40 mg PO DAILY 06/16/20 04/19/22 History carvedilol 3.125 mg tablet 6.25 mg PO BID 06/16/20 04/19/22 History glimepiride 1 mg tablet 1 mg PO DAILY 04/19/22 04/19/22 History mirtazapine 15 mg tablet 22.5 mg PO HS 04/19/22 04/19/22 History trazodone 50 mg tablet 25 mg PO BID PRN Anxiety 04/19/22 04/19/22 History trazodone 50 mg tablet 50 mg PO HS PRN Insomnia 04/19/22 04/19/22 History Allergies Allergy/AdvReac Type Severity Reaction Status Date / Time codeine Allergy Unknown Verified 03/14/19 18:58 Vital Signs Vital Signs - 24 hr 04/19/22 15:32 Oxygen Delivery Nasal Cannula Oxygen Flow Rate 6
--- NOTE | 2022-04-20 02:21 | PC.NURSE ---
Pt passed 04/20/22 at 0203. Family present at bedside. Vincenzo Louise, ICU/IMU clinic charge nurse and greenhouse florist, Iva Shabazz notified of Pt's passing.
--- NOTE | 2022-04-20 03:48 | PC.NURSE ---
04/20/22 0225- Pt's family will call and update staff when they decide on which home they wish to use.
--- NOTE | 2022-04-20 11:15 | PM.IMHP ---
H&P: HPI History of Present Illness Date/Time: 04/20/22 11:15 Chief Complaint: Uncontrolled dyspnea Narrative: 86-year-old female had a fall at home hitting the back of her head. CT of the brain at emergency department showed traumatic intraparenchymal hemorrhage. 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 Mental status rapid decline. No neuro surgical beds were available at outlying institutions. Because the patient has advanced age rapidly declining functional status family opted for comfort care only on hospice inpatient service. Patient was dyspneic and restless prior to initiation of palliative medications. Review of Systems Review of Systems: ROS unobtainable: Yes unobtainable due to medical condition PMFSH Past Medical History Medical History (Updated 04/20/22 @ 11:21 by Prudencio Pérez MD) Coronary artery disease Essential hypertension History of cardiac monitoring Hyperlipidemia Type 2 diabetes mellitus Surgical History Surgical History (Updated 04/20/22 @ 11:21 by Prudencio Pérez MD) Stented coronary artery Family History Family History (Updated 04/20/22 @ 11:23 by Prudencio Pérez MD) Father No problems noted. Mother No problems noted. Social History Social History (Updated 04/20/22 @ 11:24 by Prudencio Pérez MD) Smoking status: Never smoker Alcohol intake: never Substance use: never Has the Lack of Transportation Kept You From Medical Appointments or From Getting Medications?: No Within the Past 12 Months, Were You Worried Whether Your Food Would Run Out Before You Got Money to Buy More?: Never True What is Your Housing Situation Today?: I Have Housing Are You Worried That in the Next 2 Months, You May Not Have Your Own Housing to Live In?: No Do You Have Trouble Paying Your Heating Or Electricity Bill?: No Do You Have Trouble Paying For Medicines?: No Are You Currently Unemployed and Looking for Work?: No Do You Have Trouble With Childcare or the Care of a Family Member?: No Living arrangements: alone Occupation/Education: retired Gender identity (if verbalized by the patient): Female Meds Home Medications and Allergies Home Medications Medication Instructions Recorded Confirmed Type atorvastatin 80 mg tablet 40 mg PO DAILY 06/16/20 04/19/22 History carvedilol 3.125 mg tablet 6.25 mg PO BID 06/16/20 04/19/22 History glimepiride 1 mg tablet 1 mg PO DAILY 04/19/22 04/19/22 History mirtazapine 15 mg tablet 22.5 mg PO HS 04/19/22 04/19/22 History trazodone 50 mg tablet 25 mg PO BID PRN Anxiety 04/19/22 04/19/22 History trazodone 50 mg tablet 50 mg PO HS PRN Insomnia 04/19/22 04/19/22 History Allergies Allergy/AdvReac Type Severity Reaction Status Date / Time codeine Allergy Unknown Verified 03/14/19 18:58 Vital Signs Vital Signs - 24 hr 04/19/22 15:32 04/19/22 20:00 04/19/22 23:49 Oxygen Delivery Nasal Cannula Nasal Cannula Nasal Cannula Oxygen Flow Rate 6 6 6 Exam Narrative: elderly female lying comfortably in hospital bed with intermittent apneas unresponsive to verbal or tactile stimuli neck no JVD chest coarse breath sounds right lower lobe heart normal S1-S2 regular rate no audible murmur extremities no edema sounds clubbing bowel sounds hypoactive soft nontender no organomegaly musculoskeletal no gross deformity to visual inspection neurologic cranial nerves symmetric to visual inspection Assessment and Plan Assessment and plan (1) Palliative care encounter: Code(s): Z51.5 - Encounter for palliative care Status: Acute Assessment and Plan: meets inpatient hospice requirements due to requiring continuous IV narcotic for control of dyspnea and discomfort discussed with family at bedside (2) Hemorrhagic stroke: Code(s): I61.9 - Nontraumatic intracerebral hemorrhage, unspecified Status: Acute (3) Type 2 diabetes mellitus:
--- NOTE | 2022-04-20 11:25 | PM.DDS ---
Discharge Summary Date and Time Date of : 04/20/22 Time of : 02:03 Provider Pronounced By: elle hawkins Probable Cause of Probable Cause of : traumatic and intraparenchymal hemorrhage Summary Hospital Course: patient was admitted to inpatient hospice service due to dyspnea and discomfort medications titrated to comfort Mrs. Pérez peacefully Additional Data Confirmation of as documented by pronouncing clinician: Pupillary Reflex, Palpable Pulses, Response to Stimuli, Heart Tones and Breath Sounds Name of Provider Notified: dr novoa Time Provider Notified: 02:37 Provider Requests Autopsy: No Family Requests Autopsy: No Police Surgeon Notified: Yes Date [facility] Notified of : 04/20/22 Time [facility] Notified of : 02:46
--- NOTE | 2022-04-20 12:09 | PC.NURSE ---
Body released to [facility]
== END 2022-04-20 02:03 | disposition expired | DRG 951 ==
PROVIDERS: Admitting Provider Internal Medicine; Visit Provider Internal Medicine
DX: Z51.5 Encounter for palliative care (principal); I61.9 Nontraumatic intracerebral hemorrhage, unspecified; I25.10 Atherosclerotic heart disease of native coronary artery without angina pectoris; I10 Essential (primary) hypertension; E78.5 Hyperlipidemia, unspecified; E11.9 Type 2 diabetes mellitus without complications; Z91.81 History of falling; Z95.5 Presence of coronary angioplasty implant and graft
CPT/HCPCS: A9270; J1170; J3360